=== PATIENT | female | born 1955 | race Caucasian/White ===

== ENCOUNTER → 2019-11-16 12:54 | Outpatient (CLI) | payer MEDICARE, MEDICAID ==
[2012-04-02 11:59] VITALS: BMI 34.5
--- NOTE | ~2019-11-16 | EC ---
PATIENT:FAB SINGH DATE OF SERVICE: 11/16/19 SEX: F MEDICAL RECORD: [id number] DATE OF : [birth year] [facility] [place] AGE OF PATIENT: 63 ADMISSION DATE: 11/16/19 REFERRING PHYSICIAN: INTERPRETING PHYSICIAN: MARIKA LEWIS MD ECHOCARDIOGRAM REPORT ECHO CHARGES 4 ECHO COMPLETE Date: 11/16/19 CLINICAL DIAGNOSIS: BLANC/AORITC STENOSIS/BICUSPID VALVES.... HX OF HTN, ASSESS AV ECHOCARDIOGRAPHIC MEASUREMENTS (adult normal given) AC root (d.<3.7cm) 2.7 cm LV Septum d (<1.2 cm> 1.3 cm Valve Excursion 1.5 cm LV Septum (systole) 1.4 cm Left Atria (s.<4.0cm> 4.5 cm LVPW d(<1.2cm) 1.3 cm RV (d.<2.3cm) 3.0 cm LVPW (sytole) 1.7 cm LV diastole(<5.6CM) 5.5 cm MV E-F(>70mm/sec) cm LV systole 3.9 cm LVOT Diameter 2.0 cm MV exc.(>10mm) 1.2 cm Est.ejection fraction (50-75%) % DOPPLER: LVIT cm/sec A 115.0cm/sec E 75.0 cm/sec LA cm/sec RVSP 40 mmHg LVOT 109 cm/sec AOP1/2T m/s Asc. Ao 149 cm/sec RVOT 87 cm/sec RA cm/sec PA cm/sec AV Gradient Peak 8.91 mmHg AV Mean 4.84 mmHg AV Area 2.3 cm MV Gradient Peak 6.37 mmHg MV Mean 2.13 mmHg MV Area cm COMMENTS: Clinic Lpn: 2 [address] [place] Operator: 1 Dr. Lewis TAPE# PACS Pericardial Effusion N DATE OF SERVICE: FINDINGS: 1. Left ventricular chamber size is within normal limits. Left ventricular systolic function is normal. Overall ejection fraction estimated at 60%. 2. Left atrium is enlarged at 4.5 cm. Right atrium and right ventricle chamber sizes are within normal limits. 3. Valvular structures have normal structure and motion. 4. Doppler interrogation reveals mild mitral regurgitation, mild tricuspid ECHOCARDIOGRAM REPORT [id number] FAB SINGH regurgitation, no other valvular insufficiency or stenosis. 5. No evidence of pericardial effusion or left ventricular thrombus. TRANSINT:[id number] Voice Confirmation ID: [id number] DOCUMENT ID: [id number] MARIKA LEWIS MD CC: [id number] DICTATION DATE: 11/16/19 1433 BILLET WORKER: 11/16/19 2244 REG [facility] [address] [id number]
== END | disposition home or self-care (01) ==
LOC: D.HCCECHO 11-08 13:30
PROVIDERS: ATTEND Internal Medicine Interventional Cardiology
DX: R07.9 Chest pain, unspecified (principal); R06.09 Other forms of dyspnea

== ENCOUNTER → 2020-06-19 12:49 | Outpatient (CLI) | payer MEDICARE, MEDICAID ==
[2019-12-26 09:08] VITALS: BMI 28.0
[~2020-06-19 12:49] MED LIST: ABILIFY10 MG PO; BUSPAR 15 MG TA15 MG PO; COREG6.25 MG PO; CYMBALTA60 MG PO; GABAPENTIN300 MG PO; HYDROXYZINE HCL10 MG PO; METHOCARBAMOL750 MG NG; MIRAPEX1 MG PO; NORVASC10 MG PO; PRAVASTATIN SOD10 MG PO; ZOFRAN ODT4 MG/UDTAB PO
== END | disposition home or self-care (01) ==
LOC: D.US 12:49
PROVIDERS: ATTEND Surgery
DX: I83.893 Varicose veins of bilateral lower extremities with other complications (principal); I83.813 Varicose veins of bilateral lower extremities with pain; I70.213 Atherosclerosis of native arteries of extremities with intermittent claudication, bilateral legs; I87.2 Venous insufficiency (chronic) (peripheral); I65.21 Occlusion and stenosis of right carotid artery; I65.22 Occlusion and stenosis of left carotid artery; I10 Essential (primary) hypertension

== ENCOUNTER → 2020-07-24 09:03 | Outpatient (CLI) | payer MEDICARE, MEDICAID ==
[2019-12-26 09:08] VITALS: BMI 28.0
== END | disposition home or self-care (01) ==
LOC: D.US 09:03
PROVIDERS: ATTEND Surgery
DX: Z13.6 Encounter for screening for cardiovascular disorders (principal); I65.23 Occlusion and stenosis of bilateral carotid arteries; I83.893 Varicose veins of bilateral lower extremities with other complications; I83.813 Varicose veins of bilateral lower extremities with pain; I70.213 Atherosclerosis of native arteries of extremities with intermittent claudication, bilateral legs; I87.2 Venous insufficiency (chronic) (peripheral); I65.21 Occlusion and stenosis of right carotid artery; I65.22 Occlusion and stenosis of left carotid artery